=== PATIENT | female | born 1965 | race Caucasian/White ===

== ENCOUNTER 2016-12-08 18:17 | Emergency (ER) | payer OTHER ==
[~2016-12-08] VITALS: Ht 149.9 cm; Wt 72.6 kg
[2016-12-08 21:01] LABS: BASOPHIL % 0.6 % (0-2); PLATELET COUNT 243 x10^3mcL (130-400); RED CELL DISTRIBUTION WIDTH 13.9 % (11.5-14.5)
[2016-12-08 21:11] LABS: CALCIUM 9.3 mg/dL (8.5-10.1); CARBON DIOXIDE 29.9 mmol/L (21-32); CHLORIDE SERUM 97 mmol/L (98-107); CREATININE SERUM 0.9 mg/dL (0.6-1.0); GFR1 > 60 mL/min; GLUCOSE SERUM 403 mg/dL (74-106); POTASSIUM SERUM 3.5 mmol/L (3.5-5.1); SODIUM SERUM 133 mmol/L (136-145)
[2016-12-08 21:15] LABS: ALBUMIN 3.4 g/dL (3.4-5.0); ALKALINE PHOSPHATASE 126 U/L (46-116); ALT/SGPT 46 U/L (14-59); AST/SGOT 17 U/L (15-37); BILIRUBIN TOTAL 0.64 mg/dL (0.20-1.00); TOTAL PROTEIN, SERUM 7.6 g/dL (6.4-8.2)
[2016-12-08 21:43] LABS: CK-MB < 0.5 ng/mL (0-3.6); CREATINE KINASE 67 U/L (26-192)
[2016-12-08 23:28] VITALS: BP 149/95
== END 2016-12-08 23:28 | disposition home or self-care (01) ==
LOC: ED 18:17
PROVIDERS: Emergency Medicine
DX: E11.65 Type 2 diabetes mellitus with hyperglycemia (principal); R42 Dizziness and giddiness; I10 Essential (primary) hypertension
CPT/HCPCS: 82962; J7030; Q0092

== ENCOUNTER 2018-07-21 17:22 | Emergency (ER) | payer OTHER ==
[~2018-07-21] VITALS: Ht 152.4 cm; Wt 70.3 kg
[2018-07-21 17:28] VITALS: Ht 152.4 cm; Wt 70.3 kg
[2018-07-21 18:51] LABS: CALCIUM 9.4 mg/dL (8.5-10.1); CARBON DIOXIDE 30.4 mmol/L (21-32); CREATININE SERUM 1.1 mg/dL (0.6-1.0)
[2018-07-21 19:00] LABS: BASOPHIL % 0.5 % (0-2); PLATELET COUNT 358 x10^3mcL (130-400); RED CELL DISTRIBUTION WIDTH 14.4 % (11.5-14.5)
[2018-07-21 19:03] LABS: ALBUMIN 3.4 g/dL (3.4-5.0); BILIRUBIN TOTAL 0.36 mg/dL (0.20-1.00); T4(THYROXINE) 10.3 ug/dL (4.7-13.3); TOTAL PROTEIN, SERUM 8.7 g/dL (6.4-8.2)
[2018-07-21 19:24] LABS: microscopic required? YES; urine erythrocyte 3+ (NEGATIVE)
[2018-07-21 21:56] VITALS: BP 139/90
== END 2018-07-21 21:56 | disposition home or self-care (01) ==
LOC: ED 17:22
PROVIDERS: Emergency Medicine
DX: N93.8 Other specified abnormal uterine and vaginal bleeding (principal); E11.22 Type 2 diabetes mellitus with diabetic chronic kidney disease; N18.3 Chronic kidney disease, stage 3 (moderate); E87.8 Other disorders of electrolyte and fluid balance, not elsewhere classified; I10 Essential (primary) hypertension; E78.00 Pure hypercholesterolemia, unspecified; E66.9 Obesity, unspecified; Z90.49 Acquired absence of other specified parts of digestive tract
CPT/HCPCS: J1885; J7030; Q9967